=== PATIENT | male | born 1980 | race Caucasian/White ===

== ENCOUNTER 2017-04-16 14:15 | Emergency (ER) | payer OTHER | END 2017-04-16 16:23 | disposition home or self-care (01) | LOC: E/R 14:15 | DX: M54.2 Cervicalgia (principal); I25.2 Old myocardial infarction | CPT/HCPCS: 93880; 99284-25 ==

== ENCOUNTER 2017-09-12 10:23 | Emergency (ER) | payer BC | END 2017-09-12 14:58 | disposition home or self-care (01) | LOC: E/R 10:23 | DX: R07.89 Other chest pain (principal) | CPT/HCPCS: 76536; 93005; 99284-25 ==